=== PATIENT | male | born 1940 | race Caucasian/White ===

== ENCOUNTER → 2017-02-05 | Outpatient (CLI) | payer MEDICARE, OTHER ==
[~2017-02-05] MED LIST: ARTIFICIAL TEAR15 ML EYEBOTH; DICLOFENAC SODI75 MG PO; FLOVENT HFA 11012 GM INH; HALFPRIN81 MG PO; HYDROCODON-ACE1 EAC4 PO; HYDROCREAM28.4 GM TOP; IPRATROPIUM BRO15 ML NASBOTH; LEVAQUIN500 MG PO; LOTRISONE CREAM15 GM TOP; MAGNESIUM400 M1 PO; METFORMIN HCL500 M2 PO; MUCINEX DM ER1 EAC1 PO; MUCUS ER600 MG PO; NOVOLIN N100 UNIT/1 SUBCUT; NOVOLIN R100 UNIT/1 SUBCUT; PLAVIX75 MG PO; PRAVACHOL20 MG PO; PREDNISONE10 MG PO; PRINIVIL2.5 MG PO; PROVENTIL2.5 MG/3 M INH; TYLENOL PM EX-1 EACH PO; VITAMIN C500 M1 PO
== END | disposition short-term general hospital (02) ==
LOC: CLUROL 10:14
DX: Z08 Encounter for follow-up examination after completed treatment for malignant neoplasm (principal); Z85.46 Personal history of malignant neoplasm of prostate

== ENCOUNTER → 2017-02-25 | Outpatient (CLI) | payer MEDICARE, OTHER | END | disposition short-term general hospital (02) | LOC: CLCARD 10:34 | DX: I25.10 Atherosclerotic heart disease of native coronary artery without angina pectoris (principal); I10 Essential (primary) hypertension; E78.5 Hyperlipidemia, unspecified; E66.9 Obesity, unspecified; E11.9 Type 2 diabetes mellitus without complications; J44.9 Chronic obstructive pulmonary disease, unspecified; Z95.5 Presence of coronary angioplasty implant and graft; Z79.899 Other long term (current) drug therapy ==